=== PATIENT | female | born 1960 | race Caucasian/White ===

== ENCOUNTER 2019-06-25 10:12 | Outpatient (CLI) | payer MEDICARE, SELFPAY ==
[2019-06-25 10:58] LABS: Alanine Aminotransferase 7 U/L (0-33); Albumin Level 4.3 g/dL (3.5-5.2); Alkaline Phosphatase 59 IU/L (35-105); Anion Gap 15.5 (5-19); Aspartate Amino Transferase 16 U/L (0-32); Blood Urea Nitrogen 27 mg/dL (6-20); Calcium 10.3 mg/dL (8.5-10.5); Carbon Dioxide 26 mmol/L (22-29); Chloride 98 mmol/L (98-107); Globulin 2.4 g/dL (1.3-4.6); Glomerular Filtration Rate 25.5 mL/min (90-130); Glucose 73 mg/dL (65-115); Osmolality Calculated 276 mOsm/kg (285-295); Potassium 4.5 mmol/L (3.5-5.1); Sodium 135 mmol/L (136-145); Total Bilirubin 0.3 mg/dL (0.15-1.2); Total Protein 6.7 g/dL (6.6-8.7)
[2019-06-25 10:59] LABS: Basophils # 0.1 10^3/uL (0.0-0.1); Basophils % 1.6 %; Eosinophils # 0.1 10^3/uL (0.0-0.8); Eosinophils % 2.4 %; Hematocrit 28.6 % (37.0-47.0); Hemoglobin 9.1 g/dL (11.5-15.3); Lymphocytes # 0.8 10^3/uL (0.8-4.8); Lymphocytes % 22.8 %; Mean Corpuscular HGB Conc 31.8 g/dL (30.0-36.0); Mean Corpuscular Hemoglobin 35.3 pg (28.0-34.0); Mean Corpuscular Volume 110.9 fL (81-99); Mean Platelet Volume 10.7 fL (7.4-10.4); Monocytes # 0.3 10^3/uL (0.2-0.9); Monocytes % 7.6 %; Neutrophils # 2.4 10^3/uL (1.8-7.7); Neutrophils % 65.3 %; Nucleated Red Blood Cells % 0 %; Platelet Count 322 10^3/cmm (130-400); Red Blood Count 2.58 10^6/uL (4.1-5.3); Red Cell Distribution Width 13.6 % (12.1-15.1); White Blood Count 3.7 10^3/uL (4.0-10.0)
== END 2019-06-25 10:13 | disposition home or self-care (01) ==
LOC: LAB 10:20
PROVIDERS: PCP Student in an Organized Health Care Education/Training Program; Visit Provider Internal Medicine
DX: Z48.24 Encounter for aftercare following lung transplant (principal); Z51.81 Encounter for therapeutic drug level monitoring
CPT/HCPCS: 36415; 80053; 80197; 85025

== ENCOUNTER 2019-08-29 14:05 | Outpatient (CLI) | payer MEDICARE, SELFPAY ==
--- NOTE | 2019-08-29 14:19 | XR_ITS ---
WS: [id number] LUMBAR SPINE: 3 VIEWS TECHNIQUE: AP, lateral and L5-S1 spot. HISTORY: BACK PAIN, ACUTE BILATERAL THORACIC BACK PAIN COMPARISON: None available. L4 anterolisthesis by 2 mm. No fractures. Disc spaces are well preserved. Mild facet joint arthritis at L4-5 and L5-S1. Pedicles are all identified. SI joints are symmetric bilaterally. No soft tissue abnormalities. Scattered calcifications within the aorta. XR/XR lumbar spine 2-3V* [id number] IMPRESSION: Mild lumbar spondylosis and facet arthritis. No fractures.
--- NOTE | 2019-08-29 14:19 | XR_ITS ---
WS: [id number] THORACIC SPINE TECHNIQUE: AP and lateral views are performed. HISTORY: BACK PAIN, ACUTE BILATERAL THORACIC BACK PAIN COMPARISON: None available. Mild thoracolumbar scoliosis and increased thoracic kyphosis. Pedicles are all identified. No fractur es. Adjacent soft tissues are normal. Mild atherosclerosis aorta. XR/XR thoracic spine 3V* [id number] IMPRESSION: Mild spondylosis with S-shaped curvature thoracic spine.
== END 2019-08-29 14:06 | disposition home or self-care (01) ==
LOC: RADWPI 14:10
PROVIDERS: Family Provider Student in an Organized Health Care Education/Training Program; PCP Student in an Organized Health Care Education/Training Program; Visit Provider Internal Medicine
DX: M54.6 Pain in thoracic spine (principal); M47.814 Spondylosis without myelopathy or radiculopathy, thoracic region; M43.8X4 Other specified deforming dorsopathies, thoracic region
CPT/HCPCS: 72072; 72100

== ENCOUNTER → 2019-10-08 07:54 | Day surgery (SDC) | payer MEDICARE, SELFPAY ==
[2019-10-08] MEDS: acetaminophen 325 mg Tablet 650 MG PO (08:22)
[2019-10-08] MEDS: diphenhydrAMINE 25 mg Capsule PO (08:22)
[2019-10-08 08:52] VITALS: BP 143/92; PULSE 76; RESP 17; TEMP 36.9; O2SAT 97; BMI 20.9
== END ==
PROVIDERS: PCP Student in an Organized Health Care Education/Training Program; Visit Provider Internal Medicine Pulmonary Disease
DX: T86.819 Unspecified complication of lung transplant (principal)
CPT/HCPCS: 96365; 96366; J1568

== ENCOUNTER 2019-11-07 09:13 | Outpatient (CLI) | payer MEDICARE, SELFPAY ==
[2019-11-07 09:33] VITALS: BP 144/91; PULSE 78; RESP 18; TEMP 36.4; O2SAT 98; BMI 27.4
[2019-11-07] MEDS: diphenhydrAMINE 25 mg Capsule PO (09:45)
[2019-11-07] MEDS: acetaminophen 325 mg Tablet 650 MG PO (09:45)
== END 2019-11-07 09:14 | disposition home or self-care (01) ==
LOC: GILAB 09:18
PROVIDERS: PCP Student in an Organized Health Care Education/Training Program; Visit Provider Internal Medicine Pulmonary Disease
DX: Z48.24 Encounter for aftercare following lung transplant (principal); T86.818 Other complications of lung transplant; T86.810 Lung transplant rejection
CPT/HCPCS: 96365; 96366; J1568

== ENCOUNTER → 2019-12-10 09:03 | Day surgery (SDC) | payer MEDICARE, SELFPAY ==
[2019-12-10 09:28] VITALS: BP 143/87; PULSE 76; RESP 18; TEMP 37.4; O2SAT 98
[2019-12-10] MEDS: diphenhydrAMINE 25 mg Capsule PO (09:31)
[2019-12-10] MEDS: acetaminophen 325 mg Tablet 650 MG PO (09:31)
== END ==
PROVIDERS: PCP Student in an Organized Health Care Education/Training Program; Visit Provider Internal Medicine Pulmonary Disease
DX: T86.819 Unspecified complication of lung transplant (principal); Y83.0 Surgical operation with transplant of whole organ as the cause of abnormal reaction of the patient, or of later complication, without mention of misadventure at the time of the procedure; Z94.4 Liver transplant status
CPT/HCPCS: 96365; 96366; J1568

== ENCOUNTER 2019-12-15 10:08 | Outpatient (CLI) | payer MEDICARE, SELFPAY ==
--- NOTE | 2019-12-15 10:23 | XR_ITS ---
WS: [id number] CHEST 2 VIEWS HISTORY: LUNG TRANSPLANT RECIPIENT COMPARISON: None available. Lungs: Mild hyperexpansion and increased AP diameter. No mass or nodule or pneumonia. No pleural effu [place]. Cardiac size: Normal. Mediastinum/Aorta: Minimal atherosclerosis aorta. Bones: Normal. XR/XR chest 2V* [id number] IMPRESSION: Mild pulmonary hyperexpansion. No pneumonia.
== END 2019-12-15 10:09 | disposition home or self-care (01) ==
PROVIDERS: Family Provider Family Medicine Adult Medicine; PCP Family Medicine Adult Medicine; Visit Provider Student in an Organized Health Care Education/Training Program
DX: Z94.2 Lung transplant status (principal)
CPT/HCPCS: 71046

== ENCOUNTER → 2020-01-20 08:53 | Day surgery (SDC) | payer MEDICARE, SELFPAY ==
[2020-01-20 09:30] VITALS: BP 156/94; PULSE 83; RESP 18; TEMP 37.3; O2SAT 97
[2020-01-20] MEDS: acetaminophen 325 mg Tablet 650 MG PO (10:03)
[2020-01-20] MEDS: diphenhydrAMINE 25 mg Capsule PO (10:03)
== END ==
PROVIDERS: PCP Family Medicine Adult Medicine; Visit Provider Internal Medicine Pulmonary Disease
DX: Z48.24 Encounter for aftercare following lung transplant (principal); T86.818 Other complications of lung transplant; T86.810 Lung transplant rejection
CPT/HCPCS: 96365; 96366; J1568

== ENCOUNTER → 2020-02-17 08:36 | Day surgery (SDC) | payer MEDICARE, SELFPAY ==
[2020-02-17 09:16] VITALS: BMI 26.6
[2020-02-17 09:18] VITALS: BP 150/97; PULSE 75; RESP 18; TEMP 36.7; O2SAT 97
[2020-02-17] MEDS: acetaminophen 325 mg Tablet 650 MG PO (09:39)
[2020-02-17] MEDS: diphenhydrAMINE 25 mg Capsule PO (09:39)
== END ==
PROVIDERS: PCP Family Medicine Adult Medicine; Visit Provider Internal Medicine Pulmonary Disease
DX: Z48.24 Encounter for aftercare following lung transplant (principal); T86.818 Other complications of lung transplant; T86.810 Lung transplant rejection
CPT/HCPCS: 96365; 96366; J1568

== ENCOUNTER → 2020-03-16 10:07 | Day surgery (SDC) | payer MEDICARE, SELFPAY ==
[2020-03-16] MEDS: acetaminophen 325 mg Tablet 650 MG PO (10:39)
[2020-03-16] MEDS: diphenhydrAMINE 25 mg Capsule PO (10:40)
[2020-03-16 10:47] VITALS: BP 130/87; PULSE 82; RESP 18; TEMP 37.1; O2SAT 98; BMI 22.8
== END ==
PROVIDERS: PCP Family Medicine Adult Medicine; Visit Provider Internal Medicine Pulmonary Disease
DX: Z48.24 Encounter for aftercare following lung transplant (principal); T86.818 Other complications of lung transplant; T86.810 Lung transplant rejection
CPT/HCPCS: 96365; J1568

== ENCOUNTER 2020-04-07 13:08 | Outpatient (CLI) | payer MEDICARE, SELFPAY ==
--- NOTE | 2020-04-07 13:17 | XR_ITS ---
WS: [id number] CHEST 2 VIEWS HISTORY: LUNG TRANSPLANT RECIPIENT COMPARISON: 12/15/2019 Lungs: Clear with no abnormality. No pleural effusion or pneumothorax. Cardiac size: Normal. Mediastinum/Aorta: Mild atherosclerosis aorta. Bones: Normal. XR/XR chest 2V* [id number] IMPRESSION: Stable chest with no acute cardiopulmonary disease.
== END 2020-04-07 13:09 | disposition home or self-care (01) ==
LOC: RADWPI 13:12
PROVIDERS: PCP Family Medicine Adult Medicine; Visit Provider Student in an Organized Health Care Education/Training Program
DX: Z94.2 Lung transplant status (principal)
CPT/HCPCS: 71046

== ENCOUNTER → 2020-04-22 08:34 | Day surgery (SDC) | payer MEDICARE, SELFPAY ==
[2020-04-22 08:49] VITALS: BP 148/86; PULSE 71; RESP 16; TEMP 37.2; O2SAT 98
[2020-04-22] MEDS: acetaminophen 325 mg Tablet 650 MG PO (09:12)
[2020-04-22] MEDS: diphenhydrAMINE 25 mg Capsule PO (09:12)
== END ==
PROVIDERS: PCP Family Medicine Adult Medicine; Visit Provider Internal Medicine Pulmonary Disease
DX: Z48.24 Encounter for aftercare following lung transplant (principal); T86.818 Other complications of lung transplant; T86.810 Lung transplant rejection
CPT/HCPCS: J1568

== ENCOUNTER → 2020-06-01 08:25 | Day surgery (SDC) | payer MEDICARE, SELFPAY ==
[2020-06-01 08:41] VITALS: BMI 24.1
[2020-06-01 08:55] VITALS: BP 152/94; PULSE 63; RESP 18; TEMP 36.6
--- NOTE | 2020-06-01 10:25 | PC.NURSE ---
PT TOOK HER OWN TYLENOL AND BENADRYL BEFORE IVIG STARTED.
== END ==
LOC: OPS 08:28 → GILAB 08:31
PROVIDERS: PCP Family Medicine Adult Medicine; Visit Provider Internal Medicine Pulmonary Disease
DX: Z48.24 Encounter for aftercare following lung transplant (principal); T86.818 Other complications of lung transplant; T86.810 Lung transplant rejection
CPT/HCPCS: 96365; 96366; J1568

== ENCOUNTER → 2020-06-16 15:17 | Outpatient (BNVA) | payer MEDICARE, SELFPAY | PROVIDERS: PCP Family Medicine Adult Medicine; Visit Provider Nurse Practitioner Family | DX: R19.8 Other specified symptoms and signs involving the digestive system and abdomen (principal) | CPT/HCPCS: 81000; 87086 ==

== ENCOUNTER → 2020-06-29 08:35 | Day surgery (SDC) | payer MEDICARE, SELFPAY ==
[2020-06-29 09:19] VITALS: BP 148/98; PULSE 69; RESP 18; TEMP 36.7; O2SAT 98
--- NOTE | 2020-06-29 09:21 | PC.NURSE ---
Patient states she took Tylenol and Benadryl prior to coming in for IVIG infusion.
== END ==
LOC: GILAB 08:39
PROVIDERS: PCP Family Medicine Adult Medicine; Visit Provider Internal Medicine Pulmonary Disease
DX: Z48.24 Encounter for aftercare following lung transplant (principal); T86.818 Other complications of lung transplant; T86.810 Lung transplant rejection
CPT/HCPCS: 96365; 96366; J1568

== ENCOUNTER → 2020-07-27 08:36 | Day surgery (SDC) | payer MEDICARE, SELFPAY ==
[2020-07-27 09:10] VITALS: BP 132/82; PULSE 76; RESP 18; TEMP 36.6; O2SAT 98; BMI 24.1
--- NOTE | 2020-07-27 09:31 | SUR.PREOP ---
patient took benadryl and acetaminophen prior to arrival for her infusion.
== END ==
LOC: GILAB 08:38
PROVIDERS: PCP Family Medicine Adult Medicine; Visit Provider Internal Medicine Pulmonary Disease
DX: Z48.24 Encounter for aftercare following lung transplant (principal); T86.818 Other complications of lung transplant; T86.810 Lung transplant rejection
CPT/HCPCS: 96365; J1568

== ENCOUNTER 2020-07-29 12:50 | Outpatient (CLI) | payer MEDICARE, SELFPAY ==
--- NOTE | 2020-07-29 | XR_ITS ---
WS: [id number] CHEST 2 VIEWS HISTORY: Lung transplant recipient COMPARISON: 04/07/2020 Lungs: Clear with no abnormality. No pleural effusion or pneumothorax. Cardiac size: Normal. Mediastinum/Aorta: Mild atherosclerosis aorta. Bones: Normal. XR/XR chest 2V* [id number] IMPRESSION: Mild atherosclerosis aorta. Otherwise negative.
== END 2020-07-29 12:51 | disposition home or self-care (01) ==
PROVIDERS: PCP Family Medicine Adult Medicine; Visit Provider Student in an Organized Health Care Education/Training Program
DX: Z94.2 Lung transplant status (principal); I70.0 Atherosclerosis of aorta
CPT/HCPCS: 71046

== ENCOUNTER → 2020-08-24 08:25 | Day surgery (SDC) | payer MEDICARE, SELFPAY ==
[2020-08-24 08:36] VITALS: BP 132/88; PULSE 71; RESP 18; TEMP 36.6; O2SAT 98
--- NOTE | 2020-08-24 08:45 | PC.NURSE ---
Pt took Tylenol and Benadryl at home prior to coming in for IVIG infusion.
[2020-08-24 10:02] VITALS: BP 140/86; PULSE 62; RESP 16; TEMP 36.5; O2SAT 99
== END ==
LOC: GILAB 08:26
PROVIDERS: PCP Family Medicine Adult Medicine; Visit Provider Internal Medicine Pulmonary Disease
DX: Z48.24 Encounter for aftercare following lung transplant (principal); T86.818 Other complications of lung transplant; T86.810 Lung transplant rejection
CPT/HCPCS: 96365; 96366; J1568

== ENCOUNTER → 2020-09-03 12:27 | Outpatient (BNVA) | payer MEDICARE, SELFPAY | PROVIDERS: PCP Family Medicine Adult Medicine; Visit Provider Internal Medicine Critical Care Medicine | DX: Z01.818 Encounter for other preprocedural examination (principal); Z20.822 Contact with and (suspected) exposure to COVID-19 | CPT/HCPCS: 87635 ==

== ENCOUNTER 2020-09-07 10:09 | Outpatient (CLI) | payer MEDICARE, SELFPAY ==
--- NOTE | 2020-09-07 13:45 | PFTS_ITS ---
Date of Study:09/07/20 Date of Dictation: 09/14/20 MECHANICS: Pre bronchodilator Forced vital capacity (FVC) is normal. Pre bronchodilator Forced expiratory volume in one second (FEV1) is normal. FEV1/FVC is normal. There is no post bronchodialator study. FLOW VOLUME LOOP: severe sloping of expiratory limb suggestive of severe airway obstruction . LUNG VOLUMES: Total lung capacity (TLC) is normal. Residual volume (RV) is mildly reduced 76%. DIFFUSING CAPACITY FOR CARBON MONOXIDE: mildly reduced 63% . INTERPRETATION: The Spirometry is normal. There is mild restriction on lung volumes and mild gas transfer defect. Clinical correlation recommended. MTDD
== END 2020-09-07 10:10 | disposition home or self-care (01) ==
LOC: RT 10:17
PROVIDERS: PCP Family Medicine Adult Medicine; Visit Provider Internal Medicine Critical Care Medicine
DX: Z94.2 Lung transplant status (principal)
CPT/HCPCS: 94010; 94726; 94729

== ENCOUNTER → 2020-09-11 10:50 | Outpatient (BNVA) | payer MEDICARE, SELFPAY | PROVIDERS: PCP Family Medicine Adult Medicine; Visit Provider Nurse Practitioner | DX: R39.9 Unspecified symptoms and signs involving the genitourinary system (principal); N39.0 Urinary tract infection, site not specified | CPT/HCPCS: 81000 ==

== ENCOUNTER → 2020-09-28 09:01 | Day surgery (SDC) | payer MEDICARE, SELFPAY ==
[2020-09-28 09:34] VITALS: BP 143/82; PULSE 72; RESP 18; TEMP 36.3; O2SAT 98; BMI 25.0
== END ==
PROVIDERS: PCP Family Medicine Adult Medicine; Visit Provider Internal Medicine Pulmonary Disease
DX: Z48.24 Encounter for aftercare following lung transplant (principal); T86.818 Other complications of lung transplant; T86.810 Lung transplant rejection
CPT/HCPCS: 96365; 96366; J1568

== ENCOUNTER 2020-10-08 07:23 | Outpatient (CLI) | payer MEDICARE, SELFPAY ==
--- NOTE | 2020-10-08 07:35 | USCV_ITS ---
Lia Casanova Age: 59 Gender: F : 1960 Exam Date: 10/08/2020 07:48 Ordering Phys: Yony Ramirez MD Technologist: Aris Fountain Exam Location: [facility] – [place] Indication: leg pain and edema HISTORY: Lower extremity swelling. PROCEDURES: The venous duplex Doppler examination of both lower extremities was performed in the standard fashion. The following venous structures were evaluated: common femoral vein, profunda vein, proximal portion of the greater saphenous vein, superficial femoral vein, and the popliteal vein. Bilaterally, the common femoral, superficial femoral, profunda femoral, popliteal, posterior tibial, greater saphenous veins, and the peroneal trunk were identified and interrogated in the standard fashion. FINDINGS: Normal 2-D Doppler and augmentation and compressibility throughout the lower extremity venous structures. Additional imaging through the proximal calf veins also reveals no thrombus. Limited evaluation of the greater saphenous vein is patent with no thrombus. CONCLUSIONS No DVT bilateral lower extremities. Dr. Denae Dawson DO (Electronically Signed) Final Date: 08 October 2020 14:04 S
== END 2020-10-08 07:24 | disposition home or self-care (01) ==
LOC: RAD 07:27
PROVIDERS: PCP Family Medicine Adult Medicine; Visit Provider Internal Medicine Pulmonary Disease
DX: M79.604 Pain in right leg; M79.605 Pain in left leg; R60.0 Localized edema; R39.9 Unspecified symptoms and signs involving the genitourinary system
CPT/HCPCS: 81003; 87077; 87086; 87184; 93970

== ENCOUNTER → 2020-10-25 08:28 | Day surgery (SDC) | payer MEDICARE, SELFPAY ==
[2020-10-25 10:24] VITALS: BP 124/83; PULSE 73; RESP 18; TEMP 36.4; O2SAT 99; BMI 26.6
== END ==
PROVIDERS: PCP Family Medicine Adult Medicine; Visit Provider Internal Medicine Pulmonary Disease
DX: Z48.24 Encounter for aftercare following lung transplant (principal); T86.818 Other complications of lung transplant; T86.810 Lung transplant rejection
CPT/HCPCS: 96365; 96366; J1568

== ENCOUNTER → 2020-11-24 08:32 | Day surgery (SDC) | payer MEDICARE, SELFPAY ==
[2020-11-24 08:46] VITALS: BMI 26.9
[2020-11-24 08:52] VITALS: BP 134/88; PULSE 80; RESP 18; TEMP 36.4; O2SAT 97
--- NOTE | 2020-11-24 09:19 | PC.NURSE ---
Pt took her own Tylenol and Benadryl upon arrival to GI lab.
== END ==
PROVIDERS: PCP Family Medicine Adult Medicine; Visit Provider Internal Medicine Pulmonary Disease
DX: Z48.24 Encounter for aftercare following lung transplant (principal); T86.818 Other complications of lung transplant; T86.810 Lung transplant rejection
CPT/HCPCS: 96365; 96366; J1568

== ENCOUNTER → 2020-12-23 10:45 | Outpatient (BNVA) | payer MEDICARE, SELFPAY | PROVIDERS: PCP Family Medicine Adult Medicine; Visit Provider Internal Medicine Critical Care Medicine | DX: Z01.812 Encounter for preprocedural laboratory examination (principal); Z20.822 Contact with and (suspected) exposure to COVID-19 | CPT/HCPCS: 87635 ==

== ENCOUNTER → 2020-12-27 08:39 | Day surgery (SDC) | payer MEDICARE, SELFPAY ==
[2020-12-27 09:20] VITALS: BP 133/90; PULSE 71; RESP 18; TEMP 36.4; O2SAT 99
[2020-12-27 11:19] VITALS: BMI 27.6
== END ==
PROVIDERS: PCP Family Medicine Adult Medicine; Visit Provider Internal Medicine Pulmonary Disease
DX: Z48.24 Encounter for aftercare following lung transplant (principal); T86.818 Other complications of lung transplant; T86.810 Lung transplant rejection
CPT/HCPCS: 96365; 96366; J1568

== ENCOUNTER 2020-12-28 13:33 | Outpatient (CLI) | payer MEDICARE, SELFPAY ==
--- NOTE | 2020-12-28 14:12 | PFTS_ITS ---
Date of Study:12/28/20 Date of Dictation: MECHANICS: Forced vital capacity (FVC) is normal. Forced expiratory volume in one second (FEV1) is normal. FEV1/FVC is normal. FLOW VOLUME LOOP: Normal. LUNG VOLUMES: Not measured DIFFUSING CAPACITY FOR CARBON MONOXIDE: Minimally reduced. INTERPRETATION: The prebronchodilator spirometry is normal. The gas exchange is minimally reduced. MTDD
== END 2020-12-28 13:34 | disposition home or self-care (01) ==
LOC: RT 13:37
PROVIDERS: PCP Family Medicine Adult Medicine; Visit Provider Internal Medicine Critical Care Medicine
DX: Z94.2 Lung transplant status (principal)
CPT/HCPCS: 94010; 94729

== ENCOUNTER → 2021-02-02 13:59 | Outpatient (BNVA) | payer MEDICARE, SELFPAY | PROVIDERS: PCP Family Medicine Adult Medicine; Visit Provider Nurse Practitioner Women's Health | DX: Z01.419 Encounter for gynecological examination (general) (routine) without abnormal findings (principal) | CPT/HCPCS: 87624 ==

== ENCOUNTER → 2021-02-23 08:34 | Day surgery (SDC) | payer MEDICARE, SELFPAY ==
[2021-02-23 08:55] VITALS: BMI 28.1
[2021-02-23 08:57] VITALS: BP 128/80; PULSE 75; RESP 18; TEMP 36.4; O2SAT 97
== END ==
PROVIDERS: PCP Family Medicine Adult Medicine; Visit Provider Internal Medicine Pulmonary Disease
DX: Z48.24 Encounter for aftercare following lung transplant (principal)
CPT/HCPCS: 96365; J1568

== ENCOUNTER 2021-03-28 07:35 | Outpatient (CLI) | payer MEDICARE, SELFPAY ==
[2021-03-28 08:04] VITALS: BP 134/85; PULSE 75; RESP 18; TEMP 36.6; O2SAT 98
== END 2021-03-28 07:36 | disposition home or self-care (01) ==
LOC: GILAB 07:38
PROVIDERS: PCP Family Medicine Adult Medicine; Visit Provider Internal Medicine Pulmonary Disease
DX: Z48.24 Encounter for aftercare following lung transplant (principal); T86.818 Other complications of lung transplant; T86.810 Lung transplant rejection
CPT/HCPCS: 96365; J1568

== ENCOUNTER → 2021-04-26 08:29 | Day surgery (SDC) | payer MEDICARE, SELFPAY ==
[2021-04-26 08:45] VITALS: BP 140/80; PULSE 70; RESP 18; TEMP 36.4; O2SAT 98
== END ==
LOC: GILAB 08:30
PROVIDERS: PCP Family Medicine Adult Medicine; Visit Provider Internal Medicine Pulmonary Disease
DX: Z48.24 Encounter for aftercare following lung transplant (principal); T86.818 Other complications of lung transplant; T86.810 Lung transplant rejection
CPT/HCPCS: 96365; J1568

== ENCOUNTER → 2021-05-24 08:12 | Day surgery (SDC) | payer MEDICARE, SELFPAY ==
[2021-05-24 08:42] VITALS: BP 150/86; PULSE 87; RESP 18; TEMP 36.6; O2SAT 98
== END ==
PROVIDERS: PCP Family Medicine Adult Medicine; Visit Provider Internal Medicine Pulmonary Disease
DX: Z48.24 Encounter for aftercare following lung transplant (principal); T86.818 Other complications of lung transplant; T86.810 Lung transplant rejection
CPT/HCPCS: 96365; J1568

== ENCOUNTER → 2021-06-15 13:24 | Outpatient (BNVA) | payer MEDICARE, SELFPAY | PROVIDERS: PCP Family Medicine Adult Medicine; Visit Provider Internal Medicine Critical Care Medicine | DX: Z20.822 Contact with and (suspected) exposure to COVID-19 (principal) | CPT/HCPCS: 87635 ==

== ENCOUNTER 2021-06-21 09:51 | Outpatient (CLI) | payer MEDICARE, SELFPAY ==
--- NOTE | 2021-06-21 13:59 | PFTS_ITS ---
Date of Study:06/21/21 Date of Dictation: MECHANICS: Forced vital capacity (FVC) is normal. Forced expiratory volume in one second (FEV1) is normal. FEV1/FVC is normal. FLOW VOLUME LOOP: Normal. LUNG VOLUMES: Not measured DIFFUSING CAPACITY FOR CARBON MONOXIDE: Mildly reduced. INTERPRETATION: The prebronchodilator spirometry is normal. Postbronchodilator spirometry was not performed. Lung volumes were not measured. Gas exchange (DLCO) is mildly reduced. MTDD
== END 2021-06-21 09:52 | disposition home or self-care (01) ==
LOC: RT 09:52
PROVIDERS: PCP Family Medicine Adult Medicine; Visit Provider Internal Medicine Critical Care Medicine
DX: Z94.2 Lung transplant status (principal)
CPT/HCPCS: 94010; 94729

== ENCOUNTER → 2021-06-28 08:31 | Day surgery (SDC) | payer MEDICARE, SELFPAY ==
[2021-06-28 09:11] VITALS: BP 134/83; PULSE 72; RESP 18; TEMP 36.6; O2SAT 97
== END ==
LOC: GILAB 08:31
PROVIDERS: PCP Family Medicine Adult Medicine; Visit Provider Internal Medicine Pulmonary Disease
DX: T86.819 Unspecified complication of lung transplant (principal); Z48.24 Encounter for aftercare following lung transplant; T86.818 Other complications of lung transplant
CPT/HCPCS: 96365; J1568

== ENCOUNTER → 2021-07-01 09:42 | Outpatient (BNVA) | payer MEDICARE, SELFPAY | PROVIDERS: PCP Family Medicine Adult Medicine; Visit Provider Internal Medicine Critical Care Medicine | DX: J44.9 Chronic obstructive pulmonary disease, unspecified (principal); Z94.2 Lung transplant status; R60.0 Localized edema; Z87.891 Personal history of nicotine dependence; I10 Essential (primary) hypertension | CPT/HCPCS: 71046; 99214 ==

== ENCOUNTER → 2021-07-26 08:26 | Day surgery (SDC) | payer MEDICARE, SELFPAY ==
[2021-07-26 09:02] VITALS: BP 135/81; PULSE 70; RESP 18; TEMP 36.1; O2SAT 98
== END ==
LOC: GILAB 08:28
PROVIDERS: PCP Family Medicine Adult Medicine; Visit Provider Internal Medicine Pulmonary Disease
DX: Z48.24 Encounter for aftercare following lung transplant (principal); T86.818 Other complications of lung transplant; T86.810 Lung transplant rejection
CPT/HCPCS: 96365; J1568

== ENCOUNTER → 2021-08-23 09:09 | Day surgery (SDC) | payer MEDICARE, SELFPAY ==
[2021-08-23 09:30] VITALS: BP 125/83; PULSE 75; RESP 18; TEMP 36.7; O2SAT 98
== END ==
LOC: GILAB 09:11
PROVIDERS: PCP Family Medicine Adult Medicine; Visit Provider Internal Medicine Pulmonary Disease
DX: Z48.24 Encounter for aftercare following lung transplant (principal); T86.818 Other complications of lung transplant; T86.810 Lung transplant rejection
CPT/HCPCS: 96365; 96366; J1568

== ENCOUNTER → 2021-08-24 10:23 | Outpatient (BNVA) | payer MEDICARE, SELFPAY | PROVIDERS: PCP Family Medicine Adult Medicine; Referring Provider Family Medicine Adult Medicine; Visit Provider Surgery | DX: R10.13 Epigastric pain (principal) | CPT/HCPCS: 99203 ==

== ENCOUNTER → 2021-09-13 13:03 | Outpatient (BNVA) | payer MEDICARE, SELFPAY | PROVIDERS: PCP Family Medicine Adult Medicine; Visit Provider Family Medicine Adult Medicine | DX: Z20.822 Contact with and (suspected) exposure to COVID-19 (principal) | CPT/HCPCS: 87635 ==

== ENCOUNTER → 2021-09-16 11:40 | Day surgery (SDC) | payer MEDICARE, SELFPAY ==
[2021-09-16 12:38] VITALS: BP 132/80; PULSE 75; RESP 18; TEMP 36.4; O2SAT 98
[2021-09-16 13:06] VITALS: BP 118/79; PULSE 75; RESP 18; TEMP 36.4; O2SAT 97
== END ==
PROVIDERS: PCP Family Medicine Adult Medicine; Visit Provider Internal Medicine
DX: B34.2 Coronavirus infection, unspecified (principal)
CPT/HCPCS: 96374

== ENCOUNTER → 2021-09-28 09:55 | Day surgery (SDC) | payer MEDICARE, SELFPAY ==
[2021-09-28 10:15] VITALS: BP 164/87; PULSE 76; RESP 18; TEMP 36.1; O2SAT 97
== END ==
PROVIDERS: PCP Family Medicine Adult Medicine; Visit Provider Internal Medicine Pulmonary Disease
DX: B34.2 Coronavirus infection, unspecified (principal)
CPT/HCPCS: 96365; 96366; J1568

== ENCOUNTER → 2021-10-26 08:40 | Day surgery (SDC) | payer MEDICARE, SELFPAY ==
[2021-10-26 09:13] VITALS: BP 122/73; PULSE 73; RESP 18; TEMP 36.2; O2SAT 97
== END ==
PROVIDERS: PCP Family Medicine Adult Medicine; Visit Provider Internal Medicine Pulmonary Disease
DX: Z48.24 Encounter for aftercare following lung transplant (principal); T86.818 Other complications of lung transplant; T86.810 Lung transplant rejection
CPT/HCPCS: 96365; J1568

== ENCOUNTER → 2021-11-02 14:29 | Outpatient (BNVA) | payer MEDICARE, SELFPAY | PROVIDERS: PCP Family Medicine Adult Medicine; Visit Provider Family Medicine Adult Medicine | DX: U07.1 COVID-19 (principal) | CPT/HCPCS: 87426 ==

== ENCOUNTER 2021-11-16 13:13 | Outpatient (CLI) | payer MEDICARE, SELFPAY ==
--- NOTE | 2021-11-16 08:46 | PFTS_ITS ---
Date of Study:11/16/21 Date of Dictation: MECHANICS: Forced vital capacity (FVC) is . Forced expiratory volume in one second (FEV1) is . FEV1/FVC is . FLOW VOLUME LOOP: . LUNG VOLUMES: Total lung capacity (TLC) is . Residual volume (RV) is . DIFFUSING CAPACITY FOR CARBON MONOXIDE: . INTERPRETATION: The pulmonary function tests are . mechanics and lung volumes. Gas exchange (DLCO) is . MTDD
== END 2021-11-16 13:14 | disposition home or self-care (01) ==
LOC: RT 13:14
PROVIDERS: PCP Family Medicine Adult Medicine; Visit Provider Internal Medicine Critical Care Medicine
DX: Z94.2 Lung transplant status (principal)
CPT/HCPCS: 94010; 94726; 94729

== ENCOUNTER → 2021-11-30 08:48 | Day surgery (SDC) | payer MEDICARE, SELFPAY ==
[2021-11-30 08:55] VITALS: BP 119/80; PULSE 75; RESP 18; TEMP 37; O2SAT 98
== END ==
PROVIDERS: PCP Family Medicine Adult Medicine; Visit Provider Internal Medicine Pulmonary Disease
DX: Z48.24 Encounter for aftercare following lung transplant (principal)
CPT/HCPCS: 96365; J1568

== ENCOUNTER → 2021-12-28 08:36 | Day surgery (SDC) | payer MEDICARE, SELFPAY ==
[2021-12-28 08:59] VITALS: BP 128/74; PULSE 73; RESP 18; TEMP 36.7; O2SAT 97
== END ==
PROVIDERS: PCP Family Medicine Adult Medicine; Visit Provider Internal Medicine Pulmonary Disease
DX: Z48.24 Encounter for aftercare following lung transplant (principal); T86.818 Other complications of lung transplant; T86.810 Lung transplant rejection
CPT/HCPCS: 96365; J1568

== ENCOUNTER → 2021-12-30 09:18 | Outpatient (BNVA) | payer MEDICARE, SELFPAY | PROVIDERS: PCP Family Medicine Adult Medicine; Visit Provider Internal Medicine Critical Care Medicine | DX: Z94.2 Lung transplant status (principal); Z87.09 Personal history of other diseases of the respiratory system; Z87.891 Personal history of nicotine dependence; Z79.69 Long term (current) use of other immunomodulators and immunosuppressants | CPT/HCPCS: 99213; 99214 ==

== ENCOUNTER 2022-01-03 | Outpatient (CLI) | payer MEDICARE, SELFPAY | END 2022-01-03 23:00 | disposition home or self-care (01) | LOC: RT 01-23 20:53 | PROVIDERS: PCP Family Medicine Adult Medicine; Visit Provider Internal Medicine Critical Care Medicine | DX: U07.1 COVID-19 (principal) | CPT/HCPCS: 87426 ==

== ENCOUNTER → 2022-01-25 08:12 | Day surgery (SDC) | payer MEDICARE, SELFPAY ==
[2022-01-25 08:40] VITALS: BP 114/79; PULSE 75; RESP 18; TEMP 36.9; O2SAT 99
== END ==
PROVIDERS: PCP Family Medicine Adult Medicine; Visit Provider Internal Medicine Pulmonary Disease
DX: Z48.24 Encounter for aftercare following lung transplant (principal); T86.818 Other complications of lung transplant; T86.810 Lung transplant rejection
CPT/HCPCS: 96365; J1459